=== PATIENT | female | born 1975 | race American Indian/Alaskan Native ===

== ENCOUNTER 2021-12-26 13:13 | Emergency (ER) | payer SELFPAY ==
[2021-12-26 14:11] VITALS: BP 154/87
[2021-12-26] MEDS ORDERED: KETOROLAC 10 MG TAB PO ONE (16:03)
[2021-12-26] MEDS ORDERED: predniSONE 20 MG TAB PO ONE (16:03)
--- NOTE | 2021-12-26 16:07 | Emergency Department Report ---
ED Extremity Problem HPI - General Chief complaint: Extremity Injury, Lower Stated complaint: leg pain Time Seen by Provider: 12/26/21 15:45 Source: patient Mode of arrival: Ambulatory Limitations: No Limitations - History of Present Illness Initial comments: 46 yo black female presents to Ed for evaluation of bilateral leg pain. She states that 2-3 years ago, she was injured at work. She states that she was never evaluated after the accident and since then, she has had intermittent leg pain.She states that pain has been worse and more consistent the past 2 days. She denies any new injury. She states that she has aching in her bilateral hips that radiates down her bilateral legs. She states that she has some intermittent tingling the her legs also. She denies fever, abdominal pain, and urinary symptoms. MD Complaint: extremity pain -: Gradual, year(s) (2-3) Location: bilateral lower extremity History of Same: Yes -: No myalgia, No arthralgia, No associated dyspnea, No associated chest pain Severity scale (0 -10): 8 Quality: aching Consistency: intermittent Associated Symptoms: denies other symptoms - Related Data Previous Rx's Medication Instructions Recorded Last Taken Type Lidocaine [Lidoderm] 1 each TP DAILY PRN #10 patch 12/26/21 Unknown Rx methylPREDNISolone [Medrol 4MG 4 mg PO DAILY #1 pack 12/26/21 Unknown Rx DOSEPAK (21 tabs)] Allergies Allergy/AdvReac Type Severity Reaction Status Date / Time No Known Allergies Allergy Unverified 12/26/21 14:08 ED Review of Systems ROS: Stated complaint: leg pain Other details as noted in HPI Comment: All other systems reviewed and negative Respiratory: denies: shortness of breath Cardiovascular: denies: chest pain, palpitations Gastrointestinal: denies: abdominal pain, nausea, vomiting Genitourinary: denies: urgency, dysuria, frequency, hematuria, discharge Musculoskeletal: denies: back pain Neurological: denies: headache, weakness ED Past Medical Hx - Past Medical History Hx Asthma: Yes - Surgical History Past Surgical History?: No - Medications Home Medications: Home Medications Medication Instructions Recorded Confirmed Last Taken Type Lidocaine [Lidoderm] 1 each TP DAILY PRN #10 patch 12/26/21 Unknown Rx methylPREDNISolone [Medrol 4MG 4 mg PO DAILY #1 pack 12/26/21 Unknown Rx DOSEPAK (21 tabs)] ED Physical Exam - General Limitations: No Limitations General appearance: alert, in no apparent distress - Head Head exam: Present: atraumatic, normocephalic - Eye Eye exam: Present: normal appearance - Neck Neck exam: Present: normal inspection. Absent: tenderness, lymphadenopathy - Respiratory Respiratory exam: Absent: respiratory distress - Cardiovascular Cardiovascular Exam: Present: regular rate - GI/Abdominal GI/Abdominal exam: Absent: distended, tenderness - Extremities Exam Extremities exam: Present: normal inspection - Expanded Lower Extremity Exam Left Hip exam: Present: tenderness. Absent: swelling Upper Leg exam: Present: normal inspection Knee exam: Present: normal inspection Lower Leg exam: Present: normal inspection Ankle exam: Present: normal inspection Foot/Toe exam: Present: normal inspection Neuro vascular tendon exam: Present: no vascular compromise. Absent: pulse deficit, abnormal cap refill, motor deficit, sensory deficit, extremity cold to touch, pallor Gait: Positive: observed and normal Right Hip exam: Present: tenderness. Absent: swelling Upper Leg exam: Present: normal inspection, tenderness. Absent: swelling Knee exam: Present: normal inspection Lower Leg exam: Present: normal inspection Ankle exam: Present: normal inspection Foot/Toe exam: Present: normal inspection Neuro vascular tendon exam: Present: no vascular compromise. Absent: pulse deficit, abnormal cap refill, extremity cold to touch, pallor - Back Exam Back exam: Present: normal inspection. Absent: tenderness, CVA tenderness (R), CVA tenderness (L) - Neurological Exam Neurological exam: Present: alert, oriented X3 - Psychiatric Psychiatric exam: Present: normal affect, normal mood - Skin Skin exam: Present: warm, dry, intact, normal color ED Course Vital Signs 12/26/21 14:07 Temperature 99.1 F Pulse Rate 74 Respiratory 18 Rate Blood Pressure 154/87 O2 Sat by Pulse 96 Oximetry ED Medical Decision Making - Medical Decision Making 46 yo black female presents to Ed for evaluation of bilateral leg pain. She states that 2-3 years ago, she was injured at work. She states that she was never evaluated after the accident and since then, she has had intermittent leg pain.She states that pain has been worse and more consistent the past 2 days. She denies any new injury. She states that she has aching in her bilateral hips that radiates down her bilateral legs. She states that she has some intermittent tingling the her legs also. She denies fever, abdominal pain, and urinary symptoms. Physical exam unremarkable. Patient will be discharged home with medrol dosepack and lidoderm patches to use as needed. She is advised to follow up with her pcp if no improvement or worsening symptoms and return to ed as needed. She verbalized understanding of and agreement with plan of care. Critical care attestation.: If time is entered above; I have spent that time in minutes in the direct care of this critically ill patient, excluding procedure time. ED Disposition Clinical Impression: Lumbar radicular pain Disposition: HOME / SELF CARE / HOMELESS Is pt being admited?: No Does the pt Need Aspirin: No Condition: Stable Instructions: Radicular Pain Additional Instructions: Take medications as prescribed. Follow up with primary care provider if no i mprovement or worsening symptoms. Return to Ed as needed. Prescriptions: Lidocaine [Lidoderm] 1 each TP DAILY PRN #10 patch PRN Reason: Pain, Moderate (4-6) methylPREDNISolone [Medrol 4MG DOSEPAK (21 tabs)] 4 mg PO DAILY #1 pack Referrals: CARMEN LAWRENCE MD [Staff Physician] - 3-5 Days Forms: Work/School Release Form(ED) Time of Disposition: 16:06
== END 2021-12-26 18:00 | disposition home or self-care (01) ==
LOC: ED 13:13
DX: M54.50 Low back pain, unspecified (principal); J45.909 Unspecified asthma, uncomplicated
CPT/HCPCS: 99282